=== PATIENT | female | born 1955 | race Hispanic/Latino ===

== ENCOUNTER 2018-06-09 09:14 | Emergency (ER) | payer OTHER, BC ==
--- OUTSIDE RECORDS SUMMARY | 2018-06-09 09:16 | XMS REPORT ---
:1955 Author Organization eClinicalWorks Care Team Providers Name Role Phone Sean Diaz Provider Role Unavailable Allergies, Adverse Reactions, Alerts Substance Reaction Event Type Lisinopril Info Not Available Drug Allergy Lipitor Info Not Available Drug Allergy Problems Problem Type Condition Code Onset Dates Condition Status Problem Mixed hyperlipidemia E78.2 Active Problem Overweight (BMI 25.0-29.9) E66.3 Active Problem Vitamin B 12 deficiency E53.8 Active Problem Vitamin D deficiency E55.9 Active Assessment Mixed hyperlipidemia E78.2 Active Problem Rheumatoid arthritis involving M05.79 Active multiple sites with positive rheumatoid factor Problem Sciatica of right side M54.31 Active Problem Hypertension I10 Active Problem Osteopenia M85.80 Active Problem Herniated lumbar intervertebral disc 722.10 Active Problem Discogenic syndrome, 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 15024207991 500-20 MG Orally Active 1 tablet Twice a day before meals Aspirin [facility] 54998519050 81 MG Orally Active 1 tablet Once a day Estradiol ND 52547807451 1 MG Orally Active 1 tablet Daily for Three Weeks, 1 Week off Flonase [facility] 25549814409 50 MCG/ACT Active 1 spray in Nasally Once a each day nostril Tramadol HCl [facility] 63075593371 50 MG Orally Active 1 tablet every 6 hrs as needed Caltrate 600+D [facility] 18338267308 600-800 MG-UNIT Active 1 tablet Orally Once a with a day meal Amlodipine [facility] 14725381579 5 MG Orally Once Active 1 tablet Besylate a day Coreg NDC 59673188948 12.5 MG Orally Active 1 tab BID Gemfibrozil [facility] 16429344444 600 MG Orally Active 1 tablet Twice a day Results No Known Results Summary Purpose eClinicalWorks Submission
--- OUTSIDE RECORDS SUMMARY | 2018-06-09 09:16 | XMS REPORT ---
:1955 Author Organization eClinicalWorks Care Team Providers Name Role Phone DiazSean Provider Role Unavailable Allergies No Known Allergies Problems Problem Type Condition Code Onset Dates Condition Status Problem Mixed hyperlipidemia E78.2 Active Problem Overweight (BMI 25.0-29.9) E66.3 Active Problem Vitamin B 12 deficiency E53.8 Active Problem Vitamin D deficiency E55.9 Active Problem Rheumatoid arthritis involving M05.79 Active multiple sites with positive rheumatoid factor Problem Sciatica of right side M54.31 Active Problem Hypertension I10 Active Problem Osteopenia M85.80 Active Problem Herniated lumbar intervertebral disc 722.10 Active Problem Discogenic syndrome, 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 52335442896 600 MG Orally Active 1 tablet Twice a day Results No Known Results Summary Purpose eClinicalWorks Submission
--- OUTSIDE RECORDS SUMMARY | 2018-06-09 09:16 | XMS REPORT ---
:1955 Author Organization eClinicalWorks Care Team Providers Name Role Phone Sean Diaz Provider Role Unavailable Allergies No Known Allergies [...] Problem Allergic rhinitis, seasonal J30.2 Active Medications No Known Medications Results No Known Results Summary Purpose eClinicalWorks Submission
--- OUTSIDE RECORDS SUMMARY | 2018-06-09 09:16 | XMS REPORT ---
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 Problem Acute pain R52 Active Assessment Encounter for screening for other Z11.59 Active viral diseases Assessment Encounter for preventative adult Z00.01 Active health care exam with abnormal findings Problem Degenerative joint disease M15.9 Active involving multiple joints Problem Raised antibody titer R76.0 Active Problem Hereditary peripheral neuropathy G60.9 Active Problem Other intervertebral disc M51.26 Active displacement, lumbar region Problem Symptomatic postsurgical menopause E89.41 Active Problem Allergic rhinitis, seasonal J30.2 Active Medications Medication Code Code Instructions Start End Status Dosage System Date Date Flonase [facility] 12229256252 50 MCG/ACT Active 1 spray in Nasally Once a each day nostril Tramadol HCl ND 43740284561 50 MG Orally Active 1 tablet every 6 hrs as needed Vimovo [facility] 44970563735 500-20 MG Orally Active 1 tablet Twice a day before meals Aspirin [facility] 07902007605 81 MG Orally Active 1 tablet Once a day Estradiol ND 11897907285 1 MG Orally Active 1 tablet Daily for Three Weeks, 1 Week off Amlodipine [facility] 47068689108 5 MG Orally Once Active 1 tablet Besylate a day Coreg [facility] 09407113642 12.5 MG Orally Active 1 tab BID Gemfibrozil [facility] 90857599088 600 MG Orally Active 1 tablet Twice a day Caltrate 600+D [facility] 75547034080 600-800 MG-UNIT Active 1 tablet Orally Once a with a day meal Results No Known Results Summary Purpose eClinicalWorks Submission
--- OUTSIDE RECORDS SUMMARY | 2018-06-09 09:17 | XMS REPORT ---
:1955 Author Organization eClinicalWorks Care Team Providers Name Role Phone Joe Sean Provider Role Unavailable Allergies No Known Allergies Problems Problem Type Condition Code Onset Dates Condition Status Problem Mixed hyperlipidemia E78.2 Active Problem Overweight (BMI 25.0-29.9) E66.3 Active Problem Vitamin B 12 deficiency E53.8 Active Problem Vitamin D deficiency E55.9 Active Assessment Degenerative joint disease involving M15.9 Active multiple joints Problem Rheumatoid arthritis involving M05.79 Active multiple sites with positive rheumatoid factor Assessment Osteopenia M85.80 Active Assessment Rheumatoid arthritis involving M05.79 Active multiple sites with positive rheumatoid factor Problem Sciatica of right side M54.31 Active Problem Hypertension I10 Active Problem Osteopenia M85.80 Active Problem Herniated lumbar intervertebral disc 722.10 Active Problem Discogenic syndrome, 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 Problem Acute pain R52 Active Assessment Mixed hyperlipidemia E78.2 Active Assessment Hypertension I10 Active Problem Degenerative joint disease involving M15.9 Active multiple joints Problem Raised antibody titer R76.0 Active Problem Hereditary peripheral neuropathy G60.9 Active Problem Other intervertebral disc M51.26 Active displacement, lumbar region Assessment Vitamin D deficiency E55.9 Active Problem Symptomatic postsurgical menopause E89.41 Active Problem Allergic rhinitis, seasonal J30.2 Active Medications Medication Code Code Instructions Start End Status Dosage System Date Flonase [facility] 70079689958 50 MCG/ACT Active 1 spray in Nasally Once a each day nostril Gemfibrozil [facility] 77826474996 600 MG Orally Active 1 tablet Twice a day Coreg [facility] 42693104504 12.5 MG Orally Active 1 tab BID Amlodipine ND 74425963551 5 MG Orally Once Active 1 tablet Besylate a day Aspirin ND 16404646441 81 MG Orally Active 1 tablet Once a day Estradiol ND 23273258010 1 MG Orally Active 1 tablet Daily for Three Weeks, 1 Week off Tramadol HCl [facility] 62707109363 50 MG Orally Apr 03, Active 1 tablet Once a day 2019 as needed Fluticasone [facility] 64128892066 50 MCG/ACT Active SPRAY TWO Propionate SPRAYS IN EACH NOSTRIL ONCE DAILY Vimovo [facility] 57213200711 500-20 MG Orally Active 1 tablet Twice a day before meals Caltrate 600+D [facility] 04186818376 600-800 MG-UNIT Active 1 tablet Orally Once a with a day meal Results No Known Results Summary Purpose eClinicalWorks Submission
--- OUTSIDE RECORDS SUMMARY | 2018-06-09 09:17 | XMS REPORT ---
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 Problem Acute pain R52 Active Assessment Rheumatoid arthritis involving M05.79 Active multiple sites with positive rheumatoid factor Assessment Mixed hyperlipidemia E78.2 Active Problem Degenerative joint disease M15.9 Active involving multiple joints Problem Raised antibody titer R76.0 Active Assessment Osteopenia of neck of left femur M85.852 Active Problem Hereditary peripheral neuropathy G60.9 Active Problem Other intervertebral disc M51.26 Active displacement, lumbar region Assessment Vitamin B12 deficiency E53.8 Active Problem Symptomatic postsurgical menopause E89.41 Active Problem Allergic rhinitis, seasonal J30.2 Active Medications Medication Code Code Instructions Start End Status Dosage System Date Date Amlodipine ND 20995815145 5 MG Orally Once Active 1 tablet Besylate a day Coreg [facility] 03878414491 12.5 MG Orally Active 1 tab BID Gemfibrozil ND 69008205094 600 MG Orally Active 1 tablet Twice a day Vimovo [facility] 53778701260 500-20 MG Orally Active 1 tablet Twice a day before meals Estradiol ND 95232869625 1 MG Orally Active 1 tablet Daily for Three Weeks, 1 Week off Aspirin ND 96506002866 81 MG Orally Active 1 tablet Once a day Flonase [facility] 36520657790 50 MCG/ACT Active 1 spray in Nasally Once a each day nostril Fluticasone [facility] 28595384140 50 MCG/ACT Active SPRAY TWO Propionate SPRAYS IN EACH NOSTRIL ONCE DAILY Tramadol HCl [facility] 81409941213 50 MG Orally Apr 14, Active 1 tablet Once a day PRN 2019 as needed Caltrate 600+D [facility] 18491936854 600-800 MG-UNIT Active 1 tablet Orally Once a with a day meal Results No Known Results Summary Purpose eClinicalWorks Submission
[2018-06-09 09:33] LABS: Urine Blood NEGATIVE (NEG); Urine Glucose NEGATIVE (NEG); Urine Protein NEGATIVE (NEG); Urine pH 6.5 (5.0-7.0)
[2018-06-09] MEDS ORDERED: ASPIRIN 81 MG CHEWABLE TABLET ONE (10:00)
[2018-06-09 10:22] LABS: Absolute Lymphocytes (CBC) 1.9 K/uL (0.7-4.9); Absolute Monocytes 0.4 K/uL (0.1-1.3); Absolute Neutrophil 1.8 K/uL (1.8-8.0); Basophils % 1.1 % (0-1.3); Eosinophils % 5.2 % (0-4.4); Hematocrit 40.1 % (36.0-45.0); Lymphocytes % 43.7 % (15.3-44.8); MPV 8.3 fL (7.6-11.3); Monocytes % 8.3 % (3.3-12.3); RBC Red Blood Cell Count 4.69 M/uL (3.86-4.86)
[2018-06-09 10:34] LABS: ALT/SGPT 33 U/L (12-78); AST/SGOT 15 U/L (15-37); Albumin 4.4 g/dL (3.4-5.0); Alkaline Phosphatase 86 U/L (45-117); BUN Blood Urea Nitrogen 15 mg/dL (7-18); Bicarbonate 24 mmol/L (21-32); Bilirubin Direct 0.1 mg/dL (0-0.2); Bilirubin Total 0.4 mg/dL (0.2-1.0); Glucose Level 114 mg/dL (74-106); Magnesium 2.1 mg/dL (1.8-2.4); NT PRO-BNP 80 pg/mL (<125); Potassium 3.8 mmol/L (3.5-5.1); Protein, Total 8.2 g/dL (6.4-8.2); Sodium Level 141 mmol/L (136-145); Troponin (Emerg Dept Use Only) < 0.02 ng/mL (0.0-0.045)
[2018-06-09 10:35] LABS: Protime INR 1.02
--- NOTE | 2018-06-09 10:46 | RAD REPORT ---
EXAM DESCRIPTION: RAD - Chest Single View - 06/09/2018 10:37 am CLINICAL HISTORY: Chest pain;Cough Chest pain. COMPARISON: Chest Single View dated 02/03/2016; CHEST SINGLE VIEW dated 07/25/2012; CHEST PA AND LAT 2 VIEW dated 05/30/2010; CHEST SINGLE VIEW dated 07/12/2004 FINDINGS: Portable technique limits examination quality. Mild interstitial prominence is seen likely representing bronchitis or asthma. No focal infiltrate ty pical of pneumonia seen. The heart is normal in size. No displaced fractures.
[2018-06-09 10:56] LABS: Blood Morphology Comment NOT SEEN (NOT SEEN); Platelet Estimate ADEQ
--- NOTE | 2018-06-09 11:08 | ER ---
Nurse's Notes [facility] Name: Shonna Carroll Age: 63 yrs Sex: Female : 1955 Arrival Date: 06/09/2018 Time: 09:18 Bed 4 Private MD: Sean Diaz Diagnosis: Chest pain, unspecified Presentation: 06/09 09:22 Presenting complaint: Patient states: Diagnosed with bronchitis by urgent care Wednesday. ss Pt reports she woke up this morning with chest tightness and upper back discomfort, called her doctor who directed her to come get checked out in the ER. Transition of care: patient was not received from another setting of care. Onset of symptoms was June 09, 2018. Risk Assessment: Do you want to hurt yourself or someone else? Patient reports no desire to harm self or others. Initial Sepsis Screen: Does the patient meet any 2 criteria? No. Patient's initial sepsis screen is negative. Does the patient have a suspected source of infection? No. Patient's initial sepsis screen is negative. Care prior to arrival: None. 09:22 Method Of Arrival: Ambulatory 09:22 Acuity: CHARITY 3 Triage Assessment: 09:41 General: Appears in no apparent distress. uncomfortable, Behavior is calm, cooperative, hj appropriate for age. Pain: Complains of pain in chest. Cardiovascular: Capillary refill < 3 seconds Patient's skin is warm and dry. Historical: - Allergies: 10:24 No Known Allergies; iw - PMHx: 09:25 Hypertension; ss - PSHx: 09:25 Hysterectomy; ss - Immunization history:: Adult Immunizations up to date. - Social history:: Smoking status: Patient/guardian denies using tobacco. - Ebola Screening: : Patient denies exposure to infectious person Patient denies travel to an Ebola-affected area in the 21 days before illness onset. Screenin:40 Abuse screen: Denies threats or abuse. Denies injuries from another. Nutritional hj screening: No deficits noted. Tuberculosis screening: No symptoms or risk factors identified. Fall Risk None identified. Assessment: 09:42 Pain: Pain does not radiate. Pain began gradually. hj 09:42 General: Appears in no apparent distress. uncomfortable, Behavior is calm, cooperative, hj appropriate for age. Neuro: Level of Consciousness is awake, alert, obeys commands, Oriented to person, place, time, situation, Appropriate for age. Cardiovascular: Heart tones S1 S2 present Capillary refill < 3 seconds Patient's skin is warm and dry. Respiratory: Airway is patent Respiratory effort is even, unlabored, Respiratory pattern is regular, symmetrical. GI: No signs and/or symptoms were reported involving the gastrointestinal system. : No signs and/or symptoms were reported regarding the genitourinary system. EENT: No signs and/or symptoms were reported regarding the EENT system. Derm: No signs and/or symptoms reported regarding the dermatologic system. Musculoskeletal: No signs and/or symptoms reported regarding the musculoskeletal system. 10:13 Reassessment: Patient and/or family updated on plan of care and expected duration. Pain hj level reassessed. Patient is alert, oriented x 3, equal unlabored respirations, skin warm/dry/pink. awaiting results and POC:. Vital Signs: 09:33 BP 147 / 84; Pulse 78; Resp 16; Temp 97.8(O); Pulse Ox 98% on R/A; Weight 79.83 kg; ss Height 5 ft. 2 in. (157.48 cm); Pain 0/10; 09:33 Body Mass Index 32.19 (79.83 kg, 157.48 cm) ED Course: 09:18 Patient arrived in ED. mr 09:18 Sean Diaz DO is Private Physician. mr 09:24 [facility] jr8 09:24 Costa Yin MD is Attending Physician. jr8 09:24 Triage completed. ss 09:25 Arm band placed on right wrist. ss 09:32 Urine collected: clean catch specimen, clear. jb1 09:33 EKG done, by voice and data technician. reviewed by Jimy HEMPHILL. dt2 09:40 Quentin Whalen, RANJAN is Primary Nurse. hj 09:41 Patient has correct armband on for positive identification. Placed in gown. Bed in low hj position. Call light in reach. Side rails up X 1. monitoring coordinator on. Pulse ox on. NIBP on. 09:42 Patient maintains SpO2 saturation greater than 95% on room air. hj 10:02 Inserted saline lock: 20 gauge in right forearm, using aseptic technique. pc1 10:37 XRAY Chest (1 view) In Process Unspecified. EDMS 11:07 Sean Diaz DO is Referral Physician. jr8 11:31 No provider procedures requiring assistance completed. IV discontinued, intact, pc1 bleeding controlled, No redness/swelling at site. Pressure dressing applied. Administered Medications: 09:41 Drug: Aspirin Chewable Tablet 324 mg Route: PO; hj 09:53 Follow up: Response: No adverse reaction hj Outcome: 11:07 Discharge ordered by MD. jr8 11:31 Discharged to home ambulatory, with family. pc1 11:31 Discharged to home ambulatory, with family. 11:31 Condition: stable 11:31 Discharge instructions given to patient, family, Instructed on discharge instructions, follow up and referral plans. medication usage, Demonstrated understanding of instructions, follow-up care, medications, Prescriptions given X 1. 11:33 Attestation : i agree with the notes and assessment of SN Domingo. 11:34 Patient left the ED. Signatures: Dispatcher [employer] EDLA Landon Barr jb1 Laura Bhandari mr Viktoriya Nair, RN RANJAN Arelis Velasco RN RN ss Roszak, Josh, PA PA jr8 Quentin Whalen, Itzel Jama RN dt2 Domingo Garcia pc1
--- NOTE | 2018-06-09 11:08 | EDPHYS ---
Physician Documentation [facility] Name: Shonna Carroll Age: 63 yrs Sex: Female : 1955 Arrival Date: 06/09/2018 Time: 09:18 Bed 4 Private MD: Sean Diaz ED Physician Costa Yin HPI: 06/09 10:01 This 63 yrs old Female presents to ER via Ambulatory with complaints of Chest jr8 Tightness, Back Pain. 10:01 The patient or guardian reports chest pain that is located primarily in the substernal jr8 area. Onset: acutely, today. The pain radiates to back. Associated signs and symptoms: The patient has no apparent associated signs or symptoms. The chest pain is described as a pressure. Duration: The patient or guardian reports a single episode, that is now resolved. Modifying factors: The symptoms are alleviated by nothing. the symptoms are aggravated by nothing. Severity of pain: At its worst the pain was moderate in the emergency department the pain has resolved. The patient has not experienced similar symptoms in the past. The patient has been recently seen by a physician:. Recently diagnosed with acute bronchitis. Given antibiotics, cough medicine, and medicine for sore throat. Stated that she has had dry cough that is now with sputum and had blood in it. Last antibiotic today. This morning started with chest pressure and upper to mid back pain. Historical: - Allergies: 10:24 No Known Allergies; iw - PMHx: 09:25 Hypertension; ss - PSHx: 09:25 Hysterectomy; ss - Immunization history:: Adult Immunizations up to date. - Social history:: Smoking status: Patient/guardian denies using tobacco. - Ebola Screening: : Patient denies exposure to infectious person Patient denies travel to an Ebola-affected area in the 21 days before illness onset. ROS: 10:01 Eyes: Negative for injury, pain, redness, and discharge, ENT: Negative for injury, jr8 pain, and discharge, Neck: Negative for injury, pain, and swelling, Respiratory: Negative for shortness of breath, cough, wheezing, and pleuritic chest pain, Abdomen/GI: Negative for abdominal pain, nausea, vomiting, diarrhea, and constipation, Back: Negative for injury and pain, MS/Extremity: Negative for injury and deformity, Skin: Negative for injury, rash, and discoloration, Neuro: Negative for headache, weakness, numbness, tingling, and seizure. 10:01 Cardiovascular: Positive for chest pain, Negative for edema, orthopnea, palpitations, paroxysmal nocturnal dyspnea. Exam: 10:01 Eyes: Pupils equal round and reactive to light, extra-ocular motions intact. Lids and jr8 lashes normal. Conjunctiva and sclera are non-icteric and not injected. Cornea within normal limits. Periorbital areas with no swelling, redness, or edema. ENT: Nares patent. No nasal discharge, no septal abnormalities noted. Tympanic membranes are normal and external auditory canals are clear. Oropharynx with no redness, swelling, or masses, exudates, or evidence of obstruction, uvula midline. Mucous membranes moist. Neck: Trachea midline, no thyromegaly or masses palpated, and no cervical lymphadenopathy. Supple, full range of motion without nuchal rigidity, or vertebral point tenderness. No Meningismus. Chest/axilla: Normal chest wall appearance and motion. Nontender with no deformity. No lesions are appreciated. Cardiovascular: Regular rate and rhythm with a normal S1 and S2. No gallops, murmurs, or rubs. Normal PMI, no JVD. No pulse deficits. Respiratory: Lungs have equal breath sounds bilaterally, clear to auscultation and percussion. No rales, rhonchi or wheezes noted. No increased work of breathing, no retractions or nasal flaring. Abdomen/GI: Soft, non-tender, with normal bowel sounds. No distension or tympany. No guarding or rebound. No evidence of tenderness throughout. Back: No spinal tenderness. No costovertebral tenderness. Full range of motion. Skin: Warm, dry with normal turgor. Normal color with no rashes, no lesions, and no evidence of cellulitis. MS/ Extremity: Pulses equal, no cyanosis. Neurovascular intact. Full, normal range of motion. Neuro: Awake and alert, GCS 15, oriented to person, place, time, and situation. Cranial nerves II-XII grossly intact. Motor strength 5/5 in all extremities. Sensory grossly intact. Cerebellar exam normal. Normal gait. 10:03 ECG was reviewed by the Attending Physician. [email or web address]] Vital Signs: 09:33 BP 147 / 84; Pulse 78; Resp 16; Temp 97.8(O); Pulse Ox 98% on R/A; Weight 79.83 kg; ss Height 5 ft. 2 in. (157.48 cm); Pain 0/10; 09:33 Body Mass Index 32.19 (79.83 kg, 157.48 cm) ss MDM: 09:28 Patient medically screened. 11:06 Differential diagnosis: abnormal EKG, acute myocardial infarction, acute pericarditis, jr8 anxiety, chest wall pain, congestive heart failure cholecystitis, Cholelithiasis costochondritis, esophagitis, gastritis, gastroesophageal reflux disease (GERD), pleurisy, pneumonia, pneumothorax, pulmonary embolus, stable angina, thoracic aortic disection, unstable angina. The patient was given aspirin in the Emergency Department. Data reviewed: vital signs, nurses notes, lab test result(s), EKG, radiologic studies, plain films, and as a result, I will discharge patient. Data interpreted: threat monitoring analyst: rate is 78 beats/min, rhythm is normal sinus rhythm, with no ectopy, Interpretation: normal rate, Pulse oximetry: on room air is 98 %. Interpretation: normal. Counseling: I had a detailed discussion with the patient and/or guardian regarding: the historical points, exam findings, and any diagnostic results supporting the discharge/admit diagnosis, lab results, radiology results, the need for outpatient follow up, a family practitioner, to return to the emergency department if symptoms worsen or persist or if there are any questions or concerns that arise at home. 06/09 09:33 Order name: Urine Dipstick--Ancillary (enter results) eb 06/09 09:34 Order name: Urine Dipstick-Ancillary; Complete Time: 10:05 EDIN 06/09 09:40 Order name: Basic Metabolic Panel; Complete Time: 10:42 06/09 09:40 Order name: CBC with Diff; Complete Time: 10:58 06/09 09:40 Order name: LFT's; Complete Time: 10:42 06/09 09:40 Order name: Magnesium; Complete Time: 10:42 06/09 09:40 Order name: NT PRO-BNP; Complete Time: 10:42 06/09 09:40 Order name: PT-INR; Complete Time: 10:42 06/09 09:40 Order name: Troponin (emerg Dept Use Only); Complete Time: 10:42 06/09 09:40 Order name: XRAY Chest (1 view); Complete Time: 10:51 06/09 09:40 Order name: EKG; Complete Time: 09:41 06/09 09:40 Order name: Cardiac monitoring; Complete Time: 09:42 06/09 10:56 Order name: Manual Differential; Complete Time: 10:58 EDMS 06/09 09:40 Order name: EKG - Nurse/Tech; Complete Time: 09:42 06/09 09:40 Order name: IV Saline Lock; Complete Time: 10:04 06/09 09:40 Order name: Labs collected and sent; Complete Time: :06/09 09:40 Order name: O2 Per Protocol; Complete Time: :43 06/09 09:40 Order name: O2 Sat Monitoring; Complete Time: :43 EC:03 Rate is 73 beats/min. Rhythm is regular, Normal Sinus Rhythm. QRS [place] is Normal. DC jr8 interval is normal at 172 msec. QRS interval is normal at 98 msec. QT interval is normal at 449 msec. No Q waves. T waves are Normal. No ST changes noted. Clinical impression: Normal ECG and No evidence of ischemia. Interpreted by me. Reviewed by me. Administered Medications: 09:41 Drug: Aspirin Chewable Tablet 324 mg Route: PO; 09:53 Follow up: Response: No adverse reaction Disposition: 17:48 Co-signature as Attending Physician, Costa Yin MD. rn Disposition: 06/09/18 11:07 Discharged to Home. Impression: Chest pain, unspecified. - Condition is Stable. - Discharge Instructions: Nonspecific Chest Pain, Pleurisy. - Prescriptions for Prednisone 20 mg Oral Tablet - take 1 tablet by ORAL route once daily for 5 days; 5 tablet. - Medication Reconciliation Form, Thank You Letter, Antibiotic Education, Prescription Opioid Use form. - Follow up: Sean Diaz DO; When: 2 - 3 days; Reason: Recheck today's complaints, Continuance of care, Re-evaluation by your physician. - Problem is new. - Symptoms have improved. Signatures: Dispatcher [employer] EDViktoriya Bradley RN RN iw Nieto, Roman, MD MD rn Smirch, Shelby, RN RN ss Roszak, Josh, PA PA jr8 Quentin Whalen RN RN hj Corrections: (The following items were deleted from the chart) 11:34 11:07 06/09/2018 11:07 Discharged to Home. Impression: Chest pain, unspecified. hj Condition is Stable. Forms are Medication Reconciliation Form, Thank You Letter, Antibiotic Education, Prescription Opioid Use. [facility]; When: 2 - 3 days; Reason: Recheck today's complaints, Continuance of care, Re-evaluation by your physician. Problem is new. Symptoms have improved. jr8
[2018-06-09 11:41] VITALS: BP 147/84; TEMP 97.8; O2SAT 98
== END 2018-06-09 11:34 | disposition home or self-care (01) ==
LOC: ER 09:14
DX: R07.9 Chest pain, unspecified (principal); I10 Essential (primary) hypertension
CPT/HCPCS: 36415; 71045; 80048; 80076; 81003; 83735; 83880; 84484; 85025; 85610; 93005; 99285

== ENCOUNTER 2021-04-26 01:29 | Emergency (ER) | payer OTHER, BC ==
--- OUTSIDE RECORDS SUMMARY | 2021-04-26 01:32 | XMS REPORT | Continuity of Care Document ---
:1955 Author Organization [facility] t Address [address] [place] [address] Care Team Providers Name Role Phone Freedom Diaz Attending Clinician Unavailable Problems This patient has no known problems. Allergies, Adverse Reactions, Alerts Allergy Allergy Status Severity Reaction(s) Onset Inactive Treating Comm ents Source Name Type Date Date Clinician Lipitor Adverse Active Info Not [facility] Reaction Available [facility] Lisinopr Adverse Active Info Not [facility] Reaction Available [facility] Medications Ordered Filled Start Stop Current Ordering Indication Dosage Frequency Signature Comments Components Source Medication Medication Date Date Medication? Clinician (SIG) Name Name Xanax Xanax 0 Yes Sean 1 tablet [facility] ProAir HFA ProAir HFA Yes Sean [address] [facility] 4-10 Diaz needed [facility] Caltrate Caltrate Yes Sean [address] 600+D 600+D Diaz with a [facility] - meal [facility] Amlodipine Amlodipine Yes Sean [address] [facility] Besylate Besylate Diaz [facility] Aspirin Aspirin Yes Sean [address] [facility] Diaz [facility] Naproxen Naproxen Yes Sean [address] Diaz with food [facility] - or milk as [facility] needed [facility] Trazodone Trazodone Yes Sean [address] [facility] HCl HCl Diaz at bedtime [facility] Estradiol Estradiol Yes Sean [address] [facility] Flonase Flonase Yes Sean [address] [facility] Diaz each [facility] nostril [facility] Omeprazole Omeprazole Yes Sean [address] [facility] Gemfibrozil Gemfibrozil Yes Sean [address] [facility] Coreg Coreg Yes Sean [address] [facility] Tramadol Tramadol Yes Sean [address] HCl HCl Diaz as needed [facility] Immunizations Ordered Filled Immunization Date Status Comments [facility] e Immunization Name Name Prevnar 13 Prevnar 13 2018-11-[address] [facility] - -Pneumonia Vaccine -Pneumonia Vaccine 00:00:00 [facility] Procedures This patient has no known procedures. Encounters Start End Encounter Admission Attending Care Care Encounter Source Date/Time Date/Time Type Type Clinicians Facility Department ID 2021-04-02 Outpatient Diaz, [facility] 2021-04-02 Outpatient Diaz, [facility] 2021-04-02 Outpatient Diaz, [facility] 13[facility]15:53 Sean [id number] [facility] 2021-04-02 Outpatient Diaz, [facility] 13:02:18 Sean [id number] [facility] 2021-04-02 Outpatient Diaz, [facility] 12[facility]51:24 Sean [id number] [facility] 2021-04-02 Outpatient Diaz, [facility] 12[facility]43:36 Sean [id number] [facility] 2021-04-02 Outpatient Diaz, [facility] 12[facility]39:34 Sean [id number] [facility] 2021-04-02 Outpatient Diaz, [facility] 12[facility]35:11 Sean [id number] [facility] 2021-04-02 Outpatient Diaz, [facility] 12[facility]32:14 Sean [id number] [facility] 2021-04-02 Out[facility] Diaz, [facility] 12:13:33 Sean [id number] [facility] 2021-04-02 Out[facility] Diaz, [facility] 11[facility]27:32 Sean [id number] [facility] 2021-04-02 Outpatient Diaz, [facility] 11[facility]17:21 Sean [id number] [facility] 2021-04-02 Outpatient Diaz, [facility] 11:11:56 Sean [id number] [facility] 2021-04-04 2021-04-04 ambulatory [facility] [id number] [facility] 2021-03-14 2021-03-14 ambulatory [facility] [id number] [facility] 2021-03-12 2021-03-12 ambulatory [facility] [id number] [facility] 2021-03-12 2021-03-12 ambulatory [facility] [id number] [facility] 2021-01-15 2021-01-15 ambulatory [facility] [id number] [facility] 2021-01-10 2021-01-10 ambulatory [facility] [id number] [facility] 2020-10-11 2020-10-11 Outpatient [facility] [id number] [facility] 2020-09-25 2020-09-25 Outpatient [facility] [id number] [facility] 2020-08-27 2020-08-27 Outpatient [facility] [id number] [facility] 2020-08-26 2020-08-26 Outpatient [facility] [id number] [facility] 2020-08-22 2020-08-22 Outpatient [facility] [id number] [facility] 2020-08-15 2020-08-15 Outpatient [facility] [id number] [facility] 2020-07-24 2020-07-24 Outpatient [facility] [id number] [facility] 2020-07-11 2020-07-11 Outpatient [facility] [id number] [facility] 2020-07-10 2020-07-10 Outpatient [facility] [id number] [facility] 2020-07-09 2020-07-09 Outpatient [facility] [id number] [facility] 2020-06-26 2020-06-26 Outpatient [facility] [id number] [facility] 2020-06-26 2020-06-26 Outpatient [facility] [id number] [facility] 2020-06-20 2020-06-20 Outpatient [facility] [id number] [facility] 2020-06-17 2020-06-17 Outpatient [facility] [id number] [facility] 2020-05-20 2020-05-20 Outpatient [facility] [id number] [facility] 2020-05-09 2020-05-09 Outpatient [facility] [id number] [facility] 2020-05-08 2020-05-08 Outpatient [facility] [id number] [facility] 2020-05-07 2020-05-07 Outpatient [facility] [id number] [facility] 2020-04-30 2020-04-30 Outpatient [facility] [id number] [facility] 2020-03-14 2020-03-14 Outpatient [facility] [id number] [facility] 2020-02-21 2020-02-21 Outpatient [facility] [id number] [facility] 2020-02-20 2020-02-20 Outpatient [facility] [id number] [facility] 2020-01-03 2020-01-03 Outpatient [facility] [id number] [facility] 2019-12-29 2019-12-29 Outpatient [facility] [id number] [facility] 2019-12-15 2019-12-15 Outpatient [facility] [id number] [facility] 2019-12-15 2019-12-15 Outpatient [facility] [id number] [facility] 2019-11-21 2019-11-21 [facility] [id number] [facility] 11:30:00 11:30:00 t [employer] s - Drive [facility] Medicine l Medicine Outpat[facility] ent Clinics 2019-11-03 2019-11-03 [facility] [id number] [facility] 15:00:00 15:00:00 t [employer] s - Drive [facility] Medicine l Medicine Outpati ent Clinics 2019-11-03 2019-11-03 [facility] [id number] [facility] 08:39:00 08:39:00 t [employer] s - Drive [facility] Medicine l Medicine Outpati ent Clinics 2019-10-24 2019-10-24 [facility] [id number] [facility] 16:28:00 16:28:00 t [employer] s - Drive [facility] Medicine l Medicine Outpati ent Clinics 2019-10-22 2019-10-22 [facility] [id number] [facility] 19[facility]59:00 19:59:00 t [facility] [address] [employer] [place] - Road [facility] Medicine l Medicine Outpati ent Clinics 2019-10-20 2019-10-20 [facility] [id number] [facility] 15:37:00 15:37:00 t [employer] s - Drive [facility] Medicine l Medicine Outpati ent Clinics 2019-10-20 2019-10-20 [facility] [id number] [facility] 09:48:00 09:48:00 t [employer] - [employer] [facility] Medicine Outpati ent Clinics 2019-10-20 2019-10-20 [facility] [id number] [facility] 09:45:00 09:45:00 t [employer] [facility] Medicine Outpati ent Clinics 2019-09-28 2019-09-28 [facility] [id number] [facility] 11:47:00 11:47:00 [employer] [facility] Medicine Outpati ent Clinics 2019-08-28 2019-08-28 [facility] [id number] [facility] 10:13:00 10:13:00 t [employer] [facility] Medicine Outpati ent Clinics 2019-08-25 2019-08-25 [facility] [id number] 14:00:00 14:00:00 [employer] [facility] Medicine Outpati ent Clinics 2019-08-23 2019-08-23 [facility] [id number] [facility] 11:00:00 11:00:00 [employer] [facility] Medicine Outpati ent Clinics 2019-08-21 2019-08-21 [facility] [id number] [facility] 11:30:00 11:30:00 t [employer] [facility] Medicine Medicine Outpati ent Clinics 2019-05-12 2019-05-12 [facility] [id number] [facility] 09:30:00 09:30:00 [employer] [facility] Medicine Outpati ent Clinics 2019-02-09 2019-02-09 [facility] [id number] 09:30:00 09:30:00 [employer] [facility] Medicine Outpati ent Clinics 2018-11-24 2018-11-24 [facility] [id number] [facility] 09:05:00 09:05:[address] Luke s - Drive [facility] Medicine l Medicine Outpati ent Clinics 2018-11-10 2018-11-10 [facility] [id number] 08:45:00 08:45:[address] Luke s - Drive [facility] Medicine l Medicine Outpati ent Clinics 2018-11-04 2018-11-04 [facility] [id number] [facility] 08:45:00 08:45:[address] Luke s - Drive [facility] Medicine l Medicine Outpati ent Clinics 2018-10-27 2018-10-27 [facility] [id number] [facility] 10:00:00 10:00:[address] Luke s - Drive [facility] Medicine Outpati ent Clinics 2018-10-20 2018-10-20 [facility] [id number] [facility] 11:25:00 11:25:00 t Jarreau [employer] Luke s - Drive [facility] Medicine Medicine Outpati ent Clinics 2018-06-29 2018-06-29 [facility] [id number] 10:29:00 10:29:[address] Luke s - Drive [facility] Medicine l Medicine Outpati ent Clinics 2018-06-15 2018-06-15 [facility] [id number] 10:15:00 10:15:00 t Jarreau [employer] Luke s - Drive [facility] Medicine l Medicine Outpati ent Clinics 2018-04-14 2018-04-14 [facility] [id number] [facility] 10:15:00 10:15:[address] Luke s - Drive [facility] Medicine l Medicine Outpati ent Clinics 2018-03-29 2018-03-29 [facility] [id number] [facility] 08:15:00 08:15:[address] Luke s - Drive [facility] Medicine l Medicine Outpati ent Clinics 2017-11-09 2017-11-09 [facility] [id number] [facility] 11:21:00 11:21:[address] Luke s - Drive [facility] Medicine l Medicine Outpati ent Clinics 2017-11-02 2017-11-02 [facility] [id number] [facility] 14:15:00 14:15:00 t [employer] [facility] 2017-11-02 2017-11-02 Outpatient Estefania Mact [id number] [facility] 10:15:00 10:15:00 [employer] [facility] 2017-10-29 2017-10-29 Outpatient Estefania Agarwal [id number] [facility] 08:15:00 08:15:00 t [employer] [facility] Results This patient has no known results.
[2021-04-26 02:23] LABS: Absolute Lymphocytes (CBC) 2.2 K/uL (0.7-4.9); Hematocrit 37.5 % (36.0-45.0); Lymphocytes % 37.5 % (15.3-44.8); MPV 7.6 fL (7.6-11.3); RBC Red Blood Cell Count 4.32 M/uL (3.86-4.86)
[2021-04-26 02:37] LABS: Protime INR 0.94
[2021-04-26 02:49] LABS: ALT/SGPT 25 U/L (12-78); AST/SGOT 11 U/L (15-37); Alkaline Phosphatase 68 U/L (45-117); BUN Blood Urea Nitrogen 15 mg/dL (7-18); Bicarbonate 28 mmol/L (21-32); Bilirubin Direct < 0.1 mg/dL (0-0.2); Bilirubin Total 0.2 mg/dL (0.2-1.0); Glucose Level 130 mg/dL (74-106); Magnesium 2.2 mg/dL (1.8-2.4); NT PRO-BNP 97 pg/mL (<125); Potassium 3.7 mmol/L (3.5-5.1); Protein, Total 7.7 g/dL (6.4-8.2); Sodium Level 141 mmol/L (136-145)
--- NOTE | 2021-04-26 04:59 | ER ---
Nurse's Notes [facility] Name: Shonna Carroll Age: 66 yrs Sex: Female : 1955 Arrival Date: 04/26/2021 Time: 01:32 Bed 18 Private MD: Diagnosis: Hypertensive heart disease without heart failure;Chest pain, unspecified Presentation: 04/26 01:48 Chief complaint: Patient states: States grandson was having a sleep over and was trying ll3 to scoot him over in the bed when she had a sensation of a hot flash, states she took her BP at home and it was 202/105 then took 12.5 mg of carvedilol, C/O dry mouth and nausea. Coronavirus screen: Vaccine status: Patient reports being unvaccinated. At this time, the client does not indicate any symptoms associated with coronavirus-19. Ebola Screen: No symptoms or risks identified at this time. Initial Sepsis Screen: Does the patient meet any 2 criteria? No. Patient's initial sepsis screen is negative. Does the patient have a suspected source of infection? No. Patient's initial sepsis screen is negative. Risk Assessment: Do you want to hurt yourself or someone else? Patient reports no desire to harm self or others. Onset of symptoms was April 26, 2021. Care prior to arrival: Medication(s) given: Carvedilol 12.5 mg. 01:48 Method Of Arrival: Ambulatory ll3 01:48 Acuity: CHARITY 3 ll3 Triage Assessment: 01:53 General: Appears uncomfortable, Behavior is calm, cooperative. Pain: Denies pain. EENT: ll3 Reports Dry mouth. Neuro: Level of Consciousness is awake, alert, obeys commands, Oriented to person, place, time, situation. Cardiovascular: Patient's skin is warm and dry. Respiratory: Respiratory effort is even, unlabored, Respiratory pattern is regular, symmetrical. GI: Reports nausea. Derm: Skin is pink, warm \T\ dry. Historical: - Allergies: 01:53 No Known Allergies; ll3 - Home Meds: 01:53 carvedilol 12.5 mg Oral tab 1 tab 2 times per day for Hypertension [Active]; estradiol ll3 1 mg Oral tab 1 tab once daily [Active]; tramadol 50 mg Oral tab 1 tab every 6 hours for Pain [Active]; - PMHx: 01:53 Hypertension; Hypercholesterolemia; Arthritis; ll3 - PSHx: 01:53 None; ll3 - Immunization history:: Client reports having NOT received the Covid vaccine. - Social history:: Smoking status: Patient denies any tobacco usage or history of. Screenin:53 Abuse screen: Denies threats or abuse. Denies injuries from another. Nutritional sm5 screening: No deficits noted. Tuberculosis screening: No symptoms or risk factors identified. Fall Risk IV access (20 points). Total Smith Fall Scale indicates No Risk (0-24 pts). Assessment: 02:30 General: Appears in no apparent distress. Behavior is cooperative. Pain: Denies pain. sm5 Neuro: No deficits noted. Level of Consciousness is awake, alert, obeys commands, Oriented to person, place, time, situation. Cardiovascular: Cardiovascular: Capillary refill < 3 seconds Patient's skin is warm and dry. 04:58 Respiratory: No deficits noted. Airway is patent Trachea midline Respiratory effort is sm5 even, unlabored. Vital Signs: 01:48 BP 167 / 81; Pulse 75; Resp 16; Temp 98.0(O); Pulse Ox 100% on R/A; Weight 77.11 kg ll3 (R); Height 5 ft. 1 in. (154.94 cm) (R); Pain 0/10; 03:00 BP 148 / 66; Pulse 68; Resp 19; Pulse Ox 98% on R/A; sm5 03:50 BP 142 / 75; Pulse 63; Resp 18; Pulse Ox 98% on R/A; sm5 04:54 BP 137 / 73; Pulse 65; Resp 19; Pulse Ox 97% on R/A; sm5 01:48 Body Mass Index 32.12 (77.11 kg, 154.94 cm) ll3 ED Course: 01:32 Patient arrived in ED. ja2 01:42 Noam Hensley MD is Attending Physician. kdr 01:49 Carolin Lay RN is Primary Nurse. sm5 01:53 Triage completed. ll3 01:53 Arm band placed on. ll3 02:20 Inserted saline lock: 22 gauge in right antecubital area, using aseptic technique. 5 Blood collected. 02:24 Basic Metabolic Panel Sent. sm5 02:24 CBC with Diff Sent. sm5 02:24 LFT's Sent. sm5 02:24 Magnesium Sent. sm5 02:25 NT PRO-BNP Sent. sm5 02:25 PT-INR Sent. sm5 02:25 Troponin HS Sent. sm5 02:30 XRAY Chest (1 view) In Process Unspecified. EDMS 04:44 Troponin High Sensitivity Sent. sm5 04:44 Troponin High Sensitivity Sent. sm5 04:53 Patient has correct armband on for positive identification. Placed in gown. Bed in low sm5 position. Call light in reach. Side rails up X2. teletypesetter monitor on. Pulse ox on. NIBP on. 05:11 No provider procedures requiring assistance completed. IV discontinued, intact, sm5 bleeding controlled, No redness/swelling at site. Pressure dressing applied. Administered Medications: No medications were administered Outcome: 04:59 Discharge ordered by . kdr 05:12 Discharged to home ambulatory. 5 05:12 Condition: stable 05:12 Discharge instructions given to patient, Instructed on discharge instructions, follow up and referral plans. Demonstrated understanding of instructions, follow-up care. 05:12 Patient left the ED. 5 Signatures: Dispatcher [employer] EDMS Noam Hensley MD MD kdr Amarilis Munroe Lynsea RN RN 3 Carolin Lay RN RN 5 Corrections: (The following items were deleted from the chart) 04:58 02:30 Cardiovascular: [place] [id number]
--- NOTE | 2021-04-26 04:59 | EDPHYS ---
Physician Documentation [facility] Name: Shonna Carroll Age: 66 yrs Sex: Female : 1955 Arrival Date: 04/26/2021 Time: 01:32 Bed 18 Private MD: ED Physician Noam Hensley HPI: 04/26 02:45 This 66 yrs old Female presents to ER via Ambulatory with complaints of High kdr Blood Pressure. 02:45 The patient has elevated blood pressure and discovered this at home. Onset: The kdr symptoms/episode began/occurred suddenly, this morning. Modifying factors: The symptoms are aggravated by Nothing, The symptoms are alleviated by Nothing. Associated signs and symptoms: Pertinent positives: chest pain, nausea, weakness, Pertinent negatives: dizziness, dyspnea, headache, nausea. Severity of symptoms: At its worst the blood pressure was severe, just prior to arrival, in the emergency department the blood pressure is. The patient has experienced similar episodes in the past, a few times. The patient has not recently seen a physician. Patient states that she was in bed when she suddenly had, hot flash that flashed across to her chest from right to left and into her arms. She was concerned and took her blood pressure and noted her pressure to be elevated at 170 to 180/100. She continued to feel not herself and retook her pressure short time later at that time it was even higher with a systolic at or just slightly above 200. At that time she took some of her blood pressure medicine and aspirin. Since then she has been feeling somewhat better with only a slight bit of nausea. She otherwise has no discomfort and does not appear toxic or ill in any way at this time. Historical: - Allergies: 01:53 No Known Allergies; ll3 - Home Meds: 01:53 carvedilol 12.5 mg Oral tab 1 tab 2 times per day for Hypertension [Active]; estradiol ll3 1 mg Oral tab 1 tab once daily [Active]; tramadol 50 mg Oral tab 1 tab every 6 hours for Pain [Active]; - PMHx: 01:53 Hypertension; Hypercholesterolemia; Arthritis; ll3 - PSHx: 01:53 None; ll3 - Immunization history:: Client reports having NOT received the Covid vaccine. - Social history:: Smoking status: Patient denies any tobacco usage or history of. ROS: 02:45 Constitutional: Negative for fever, chills, and weight loss, Eyes: Negative for injury, kdr pain, redness, and discharge, ENT: Negative for injury, pain, and discharge, Neck: Negative for injury, pain, and swelling, Respiratory: Negative for shortness of breath, cough, wheezing, and pleuritic chest pain, Abdomen/GI: Negative for abdominal pain, nausea, vomiting, diarrhea, and constipation, Back: Negative for injury and pain, : Negative for injury, bleeding, discharge, and swelling, MS/Extremity: Negative for injury and deformity, Skin: Negative for injury, rash, and discoloration, Neuro: Negative for headache, weakness, numbness, tingling, and seizure activity. Psych: Negative for depression, anxiety, suicide ideation, homicidal ideation, and hallucinations, Allergy/Immunology: Negative for hives, rash, and allergies, Endocrine: Negative for neck swelling, polydipsia, polyuria, polyphagia, and marked weight changes, Hematologic/Lymphatic: Negative for swollen nodes, abnormal bleeding, and unusual bruising. 02:45 Cardiovascular: Positive for chest pain, Negative for edema, orthopnea, palpitations, paroxysmal nocturnal dyspnea. Exam: 02:45 Constitutional: This is a well developed, well nourished patient who is awake, alert, kdr and in no acute distress. Head/Face: Normocephalic, atraumatic. Eyes: Pupils equal round and reactive to light, extra-ocular motions intact. Lids and lashes normal. Conjunctiva and sclera are non-icteric and not injected. Cornea within normal limits. Periorbital areas with no swelling, redness, or edema. Neck: Trachea midline, no thyromegaly or masses palpated, and no cervical lymphadenopathy. Supple, full range of motion without nuchal rigidity, or vertebral point tenderness. No Meningismus. Chest/axilla: Normal chest wall appearance and motion. Nontender with no deformity. No lesions are appreciated. Cardiovascular: Regular rate and rhythm with a normal S1 and S2. No gallops, murmurs, or rubs. Normal PMI, no JVD. No pulse deficits. Respiratory: Lungs have equal breath sounds bilaterally, clear to auscultation and percussion. No rales, rhonchi or wheezes noted. No increased work of breathing, no retractions or nasal flaring. Abdomen/GI: Soft, non-tender, with normal bowel sounds. No distension or tympany. No guarding or rebound. No evidence of tenderness throughout. Back: No spinal tenderness. No costovertebral tenderness. Full range of motion. Female : Normal external genitalia. Skin: Warm, dry with normal turgor. Normal color with no rashes, no lesions, and no evidence of cellulitis. MS/ Extremity: Pulses equal, no cyanosis. Neurovascular intact. Full, normal range of motion. Neuro: Awake and alert, GCS 15, oriented to person, place, time, and situation. Cranial nerves II-XII grossly intact. Motor strength 5/5 in all extremities. Sensory grossly intact. Cerebellar exam normal. Normal gait. 02:45 Abdomen/GI: Inspection: abdomen appears normal, distension, obese 02:58 ECG was reviewed by the Attending Physician. kdr Vital Signs: 01:48 BP 167 / 81; Pulse 75; Resp 16; Temp 98.0(O); Pulse Ox 100% on R/A; Weight 77.11 kg ll3 (R); Height 5 ft. 1 in. (154.94 cm) (R); Pain 0/10; 03:00 BP 148 / 66; Pulse 68; Resp 19; Pulse Ox 98% on R/A; sm5 03:50 BP 142 / 75; Pulse 63; Resp 18; Pulse Ox 98% on R/A; sm5 04:54 BP 137 / 73; Pulse 65; Resp 19; Pulse Ox 97% on R/A; sm5 01:48 Body Mass Index 32.12 (77.11 kg, 154.94 cm) ll3 MDM: 02:45 Data reviewed: vital signs, nurses notes, lab test result(s), radiologic studies. kdr Counseling: I had a detailed discussion with the patient and/or guardian regarding: the historical points, exam findings, and any diagnostic results supporting the discharge/admit diagnosis, lab results, radiology results. 04:59 Patient medically screened. kdr 04/26 02:14 Order name: Basic Metabolic Panel; Complete Time: 02:56 kdr 04/26 02:14 Order name: CBC with Diff; Complete Time: 02:45 kdr 04/26 02:14 Order name: LFT's; Complete Time: 02:56 kdr 04/26 02:14 Order name: Magnesium; Complete Time: 02:56 kdr 04/26 02:14 Order name: NT PRO-BNP; Complete Time: 02:56 kdr 04/26 02:14 Order name: PT-INR; Complete Time: 02:45 kdr 04/26 02:14 Order name: Troponin HS; Complete Time: 02:56 kdr 04/26 02:14 Order name: XRAY Chest (1 view) kdr 04/26 02:14 Order name: EKG; Complete Time: 02:14 kdr 04/26 02:14 Order name: Cardiac monitoring; Complete Time: 02:24 kdr 04/26 02:14 Order name: EKG - Nurse/Tech; Complete Time: 02:24 kdr 04/26 02:14 Order name: IV Saline Lock; Complete Time: 02:24 kdr 04/26 04:10 Order name: Troponin High Sensitivity kdr 04/26 04:11 Order name: Troponin High Sensitivity; Complete Time: 04:48 EDMS 04/26 02:14 Order name: Labs collected and sent; Complete Time: 02:24 [facility] 04/26 02:14 Order name: O2 Per Protocol; Complete Time: 02:24 [facility] 04/26 02:14 Order name: O2 Sat Monitoring; Complete Time: 02:24 kdr EC:58 Rate is 66 beats/min. Rhythm is regular, Sinus Rhythm with No ectopy. QRS [place] is kdr Normal. [place] interval is normal. QRS interval is normal. QT interval is normal. Clinical impression: NSR w/ Non-specific ST/T Changes. Administered Medications: No medications were administered Disposition Summary: 04/26/21 04:59 Discharge Ordered Location: Home kdr Problem: an acute exacerbation kdr Symptoms: have improved kdr Condition: Stable kdr Diagnosis - Hypertensive heart disease without heart failure kdr - Chest pain, unspecified kdr Followup: kdr - With: Private Physician - When: 2 - 3 days - Reason: If symptoms return, Further diagnostic work-up, Recheck today's complaints, Continuance of care, Re-evaluation by your physician Discharge Instructions: - Discharge Summary Sheet kdr - Hypertension, Adult, [id number] kdr - How to Take Your Blood Pressure, [id number] kdr Forms: - Medication Reconciliation Form kdr - Thank You Letter kdr Signatures: Dispatcher [facility], [place]Noam Goodman MD MD kdr Guanaco Burkett RN RN ll3
[2021-04-26 05:23] VITALS: TEMP 98
[2021-04-26 05:28] VITALS: BP 137/73; O2SAT 97
--- NOTE | 2021-04-26 08:17 | RAD REPORT ---
EXAM DESCRIPTION: RAD - Chest Single View - 04/26/2021 2:30 am CLINICAL HISTORY: CHEST PAIN COMPARISON: Portable 06/09/2018 TECHNIQUE: AP portable chest image was obtained 04/26/2021 2:30 am . FINDINGS: Lung osorio are underinflated but clear of a peripheral mass or consolidation. Interstitia l pattern is not clearly prior study. Minimal interstitial edema or infiltrate could be masked by the chronic pattern. Trachea is midline. Heart size is similar to the prior study. No vascular engorgement seen. No measur able pleural effusion and no pneumothorax. No acute bony abnormality seen. No acute aortic findings s uspected. IMPRESSION: No acute cardiopulmonary process. Lung parenchymal pattern is not substantially different from comparison. Minimal interstitial edema o r infiltrate is potentially masked.
--- NOTE | 2021-04-26 18:17 | EKG ---
Test Date: 2021-04-26 Test Time: 02:09:22 [employer] Consultant: CELIO MEASUREMENT RESULTS: Intervals: Rate: 66 OK: 172 QRSD: 104 QT: 432 QTc: 452 [place]: P: 6 OK: 172 QRS: -22 T: -5 INTERPRETIVE STATEMENTS: Normal sinus rhythm Voltage criteria for left ventricular hypertrophy Abnormal ECG Compared to ECG 06/09/2018 09:28:57 No significant changes Electronically Signed On 04-26-21 18:17:08 ASSISTANT PROFESSOR OF PHYSICS by Cheko Rdz
== END 2021-04-26 05:12 | disposition home or self-care (01) ==
LOC: ER 01:29
DX: I11.9 Hypertensive heart disease without heart failure (principal); I10 Essential (primary) hypertension
CPT/HCPCS: 36415; 71045; 80048; 80076; 83735; 83880; 84484; 85025; 85610; 93005; 99284

== ENCOUNTER 2022-10-02 06:30 | Day surgery (SDC) | payer OTHER, BC ==
--- NOTE | 2022-09-30 13:43 | RAD REPORT ---
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 COMPARISON: Chest Single View dated 04/26/2021; Chest Single View dated 06/09/2018; Chest Single View d ated 02/03/2016; CHEST SINGLE VIEW dated 07/25/2012 FINDINGS: The lungs are clear. The heart is normal in size. No displaced fractures. IMPRESSION: No acute or concerning finding suspected. The USPSTF recommends annual screening for lung cancer with low-dose CT (LDCT) in adults aged 50 to 80 years who have a 20 pack-year smoking history and currently smoke or have quit within the past 15 years.
[2022-09-30 14:40] LABS: Hematocrit 37.5 % (36.0-45.0); Lymphocytes % 37.8 % (15.3-44.8); MCV 86.6 fL (80-100); MPV 8.1 fL (7.6-11.3); RBC Red Blood Cell Count 4.33 M/uL (3.86-4.86)
[2022-09-30 14:49] LABS: Protime INR 1.1
[2022-09-30 14:58] LABS: Potassium 4.1 mEq/L (3.5-5.1)
--- NOTE | 2022-10-01 13:21 | EKG ---
Test Date: 2022-09-30 Test Time: 13:19:24 Program Checker: INOCENCIO MEASUREMENT RESULTS: Intervals: Rate: 64 IA: 174 QRSD: 102 QT: 436 QTc: 449 [place]: P: -12 IA: 174 QRS: -28 T: 15 INTERPRETIVE STATEMENTS: Normal sinus rhythm Normal ECG Compared to ECG 04/26/2021 02:09:22 Left ventricular hypertrophy no longer present Electronically Signed On 10-01-22 13:19:43 CDT by Catarino Keane
[2022-10-02] MEDS ORDERED: LIDOCAINE 1% 20 ML MDV ONE (06:45)
[2022-10-02] MEDS ORDERED: HEPA 1000U/500MLS 2,000 UNIT/1,000 ML BAG IV ONE (06:45)
[2022-10-02] MEDS ORDERED: FENTANYL CITR 100 MCG/2 ML ONE (06:45)
[2022-10-02] MEDS ORDERED: MIDAZOLAM HCL 2 MG/2 ML INJ ONE (06:45)
[2022-10-02] MEDS ORDERED: CLOPIDOGREL 75 MG TABLET ONE (06:46)
[2022-10-02] MEDS ORDERED: ASPIRIN 325 MG TAB ONE (06:46)
[2022-10-02] MEDS ORDERED: HEPARIN 5000 UNIT/ML 1 ML VIAL ONE (06:46)
[2022-10-02] MEDS ORDERED: VERAPAMIL HCL 10 MG/4 ML VIAL IV ONE (06:46)
[2022-10-02] MEDS ORDERED: ATROPINE SULF 1 MG/10 ML SYR IV ONE (06:47)
[2022-10-02] MEDS ORDERED: HEPARIN 10,000 UNIT/10 ML VIAL IV ONE (06:47)
[2022-10-02] MEDS ORDERED: TICAGRELOR 90 MG TABLET PO ONE (06:47)
[2022-10-02] MEDS ORDERED: NITROGLYCERIN/D5W 25 MG/250 ML BTL IV ONE (06:47)
[2022-10-02] MEDS ORDERED: NITROGLYCERIN 100 MCG/ML SYR (for cath lab use only) IV ONE (06:47)
[2022-10-02] MEDS ORDERED: NA CHLORIDE 0.9% 500 ML ONE (07:04)
[2022-10-02 07:34] VITALS: TEMP 98.2
[2022-10-02 11:14] VITALS: BP 131/74; O2SAT 97
--- NOTE | 2022-10-02 17:05 | OP ---
Date of Procedure: 10/02/2022 Surgeon: JOYCE CHANCE Procedure Performed: 1.Selective coronary angiogram. 2.Left heart catheterization. Indication: Chest pain with abnormal stress test. Access: Right radial artery 6-Mozambican closed with TR band. Complications: None. Anesthesia: Total sedation time was 50 minutes, used fentanyl and Versed. Description Of Procedure: After risks, benefits, alternatives were explained, patient agreed to proc eed and signed informed consent. Patient was brought into the cardiac catheterization laboratory, pr epped and draped in usual sterile fashion. Then, I accessed right radial artery using pediatric micr opuncture kit under ultrasound guidance, placed a 6-Mozambican slender sheath and took 5-Mozambican Rodessa 4.0 catheter into the aortic root, engaged the left main and took standard views and then the RCA and to ok standard views and the catheter was pushed over the wire into the LV, measured the LVEDP and pullb ack, did not record any gradient, and the catheter was removed. Sheath was removed and TR band was p laced with good hemostasis. Findings: 1.Left main, large and normal. 2.LAD, large and normal, normal diagonal branches. 3.Left circumflex, large and normal. 4.RCA is a large vessel that is dominant with luminal irregularities. 5.Elevated LVEDP at 50 mmHg. Conclusion: 1.No significant coronary artery disease. 2.Elevated LVEDP. Plan: Medical management. /MOIHT Voice ID: [id number] Report ID: [id number]
== END 2022-10-02 10:18 | disposition home or self-care (01) ==
LOC: CCL 06:30
PROVIDERS: ATTEND Internal Medicine
DX: R94.39 Abnormal result of other cardiovascular function study (principal); R07.9 Chest pain, unspecified
CPT/HCPCS: 93005; 85025; 80048; 36415; 85610; 85730; 71046; 93458; 76937; C1893; Q9966; J1644; J2001; J2250; J3010; J7040; J0461